=== PATIENT | male | born 2000 | race Two or more races ===

== ENCOUNTER 2022-08-13 11:51 | Emergency (ER) | payer OTHER ==
[~2022-08-13] VITALS: Ht 167.6 cm; Wt 70.3 kg
[2022-08-13] MEDS ORDERED: PROTONIX40 MG (12:01)
[2022-08-13] MEDS ORDERED: OMEPRAZOLE MAGN20 MG PO (22:57)
== END 2022-08-13 23:00 | disposition home or self-care (01) ==
LOC: ER 11:51
DX: K83.8 Other specified diseases of biliary tract (principal); K80.50 Calculus of bile duct without cholangitis or cholecystitis without obstruction